=== PATIENT | female | born 1990 | race Caucasian/White ===

== ENCOUNTER 2020-06-18 10:08 | Outpatient (CLI) | payer OTHER, SELFPAY ==
[2020-06-18 22:11] LABS: SARS-CoV-2 RNA PCR Positive
== END 2020-06-18 10:09 | disposition home or self-care (01) ==
PROVIDERS: PCP Nurse Practitioner Family; Visit Provider Nurse Practitioner Family
DX: U07.1 COVID-19 (principal)
CPT/HCPCS: 87635; C9803; U0003

== ENCOUNTER 2022-05-13 16:14 | Outpatient (NON) | payer OTHER, SELFPAY ==
[2022-05-13 16:28] LABS: Add Urine Microscopic? YES; Bilirubin Urine Negative (Negative); Blood Urine 3+ (Negative); Color Urine Light Yellow (Yellow); Glucose Urine UA Negative (Negative); Ketones Urine Trace (Negative); Leukocyte Esterase Ur 2+ LEU/UL (Negative); Nitrate Urine Negative (Negative); Protein Urine Negative (Negative); Specific Grav Ur >= 1.030 (1.010-1.020); Urobilinogen Urine 0.2 mg/dL (0.2-1.0)
[2022-05-13 16:33] LABS: Appearance Urine Slightly Cloudy (Clear); Squamous Epithelial Cell Urine Few /hpf (Few); WBC Urine 16-20 /hpf (0-3)
[2022-05-13 16:34] LABS: Bacteria Urine 2+ /hpf
== END 2022-05-13 16:15 | disposition home or self-care (01) ==
LOC: CHSLAB 16:15
PROVIDERS: Visit Provider Nurse Practitioner Family
DX: N76.0 Acute vaginitis (principal)
CPT/HCPCS: 81001; 87086; 87088; 87491; 87591; 87661

== ENCOUNTER 2023-07-11 10:06 | Emergency (ER) | payer OTHER, SELFPAY ==
--- NOTE | ~2023-07-11 | XR_ITS ---
EXAMINATION: XR chest 2V DATE: 07/11/2023 10:59 INDICATION: Chest congestion TECHNIQUE: Frontal and lateral views of the chest are obtained COMPARISON: 08/27/2019 FINDINGS: There are airspace opacities of the lung bases. No pleural effusion or pneumothorax. The ca rdiomediastinal silhouette is normal. The visualized bones and soft tissues are unremarkable. Bibasil ar airspace opacities, likely pneumonia. IMPRESSION: 1. No acute cardiopulmonary abnormality. Reviewed, dictated and finalized at location F.
[2023-07-11 10:06] VITALS: BP 163/80; PULSE 100; RESP 17; TEMP 36.3; O2SAT 95
[2023-07-11 10:19] VITALS: O2SAT 95
--- NOTE | 2023-07-11 10:38 | ED.URI ---
HPI - URI/Sore Throat General Chief Complaint: Upper Respiratory Infection Stated Complaint: URI Time Seen by Provider: 07/11/23 10:09 Source: patient Mode of arrival: ambulatory Limitations: no limitations History of Present Illness HPI Narrative: Patient is a 32-year-old female with cough and congestion and short of breath with fever and chills for the past week. Her partner is also being seen in the ER for similar symptoms. MD elicited complaint: fever, cough and nasal congestion Onset (ago): week(s) (1) Consistency: intermittent Severity: moderate Description of mucous: yellow and green Exacerbating factors: nothing Relieving factors: OTC cold medicine Context: sick contacts Associated symptoms: fever, chills, myalgias, nasal congestion, cough and shortness of breath Treatments prior to arrival: cold medicine Related Data Allergies Allergy/AdvReac Type Severity Reaction Status Date / Time hydrocodone Allergy Unknown rash Verified 07/11/23 10:16 Review of Systems Review of Systems: All systems reviewed & are unremarkable except as noted in HPI and below Constitutional: Constitutional: Reports no additional constitutional complaints Eyes: Eyes: Reports no additional eye complaints ENT: Reports system reviewed and no additional complaints, except as documented Cardiovascular: Cardiovascular: Reports no additional cardiovascular complaints Respiratory: Respiratory: Reports no additional respiratory complaints Gastrointestinal: Gastrointestinal: Reports no additional gastrointestinal complaints Genitourinary: Genitourinary: Reports no additional female genitourinary complaints Musculoskeletal: Musculoskeletal: Reports no additional musculoskeletal complaints Integumentary/Breasts: Skin/Breast: Reports system reviewed and no additional complaints, except as docu Neurologic: Reports system reviewed and no additional complaints, except as documented Psychiatric: Psychiatric: Reports no additional psychiatric complaints Endocrine: Endocrine: Reports no additional endocrine complaints Hematologic/Lymphatic: Hematologic/Lymphatic: Reports no additional hematologic/lymphatic complaints Allergic/Immunologic: Allergic/Immunologic: Reports no additional allergic/immunologic complaints PMFSH Past Medical History Medical History Acute bronchitis Depression Generalized anxiety disorder Obesity, Class II, BMI 35-39.9 Surgical History Surgical History Hx of cholecystectomy Family History Family History Grandparent Family history of lung cancer Social History Social History Smoking status: Never smoker Alcohol intake: never Substance use: current Substance use type: marijuana Lack of Transportation: No Lack of Food: Never True Current Housing: I Have Housing Concerned About Future Housing: No Difficulty Paying Gas/Electric Bills: No Difficulty Paying for Meds: No Currently Unemployed: No Education: Bachelor's Degree Difficulty w/ Childcare or Family Care: No Living arrangements: with family Occupation/Education: unemployed Gender identity (if verbalized by the patient): Female Exam Const: General: ill appearing Nutritional Appearance: well nourished Orientation/consciousness: patient oriented x3 Limitations: no limitations HENMT: Head: normal to inspection Ears: external ears normal Face/Nose/Sinus: Normal external nose present Eyes: Conjunctivae: conjunctivae normal Pupils: Equal, round and reactive pupils present EOM: EOMs intact bilaterally Neck: Neck: normal visual inspection Chest: Chest palpation & inspection: normal inspection of the chest Resp: Effort & Inspection: normal respiratory effort, not labored and no retractions Auscultation
[2023-07-11 10:57] LABS: Strep Group A RT-PCR DETECTED (Negative)
[2023-07-11 11:39] LABS: Influenza A QL RT-PCR Negative (Negative); Influenza B QL RT-PCR Negative (Negative); SARS-CoV-2 RNA PCR Negative (Negative)
[2023-07-11 11:42] LABS: RSV RNA, RT-PCR Negative (Negative)
[2023-07-11 11:58] VITALS: BP 163/80; PULSE 100; RESP 17; TEMP 36.3; O2SAT 95
== END 2023-07-11 11:58 | disposition home or self-care (01) ==
PROVIDERS: Emergency Provider Emergency Medicine; PCP Nurse Practitioner Family
DX: J02.0 Streptococcal pharyngitis (principal); Z20.822 Contact with and (suspected) exposure to COVID-19; F12.90 Cannabis use, unspecified, uncomplicated; F41.1 Generalized anxiety disorder; F32.A Depression, unspecified
CPT/HCPCS: 71046; 87637; 87651; 99283

== ENCOUNTER 2024-07-21 09:49 | Outpatient (CLI) | payer OTHER, SELFPAY ==
[2024-07-21 10:01] LABS: Add Urine Microscopic? YES; Appearance Urine Clear (Clear); Bilirubin Urine Negative (Negative); Blood Urine 2+ (Negative); Color Urine Light Yellow (Yellow); Glucose Urine UA Negative (Negative); Ketones Urine Negative (Negative); Leukocyte Esterase Ur 1+ LEU/UL (Negative); Nitrate Urine Negative (Negative); Protein Urine Trace (Negative); Specific Grav Ur 1.025 (1.010-1.020); Urobilinogen Urine 0.2 mg/dL (0.2-1.0)
[2024-07-21 10:48] LABS: Bacteria Urine 1+ /hpf; Squamous Epithelial Cell Urine Few /hpf (Few)
== END 2024-07-21 09:50 | disposition home or self-care (01) ==
PROVIDERS: PCP Nurse Practitioner Family; Visit Provider Nurse Practitioner Family
DX: R39.9 Unspecified symptoms and signs involving the genitourinary system (principal)
CPT/HCPCS: 81001; 87077; 87086; 87088; 87186

== ENCOUNTER 2024-08-05 11:41 | Emergency (ER) | payer OTHER, SELFPAY ==
[2024-08-05 11:41] VITALS: BP 146/91; PULSE 94; RESP 16; TEMP 37; O2SAT 100
[2024-08-05 11:55] LABS: Add Urine Microscopic? YES; Appearance Urine Sl Cloudy (Clear); Bilirubin Urine Negative (Negative); Blood Urine 3+ (Negative); Color Urine Light Yellow (Yellow); Glucose Urine UA Negative (Negative); Ketones Urine Negative (Negative); Leukocyte Esterase Ur 2+ LEU/UL (Negative); Nitrate Urine Positive (Negative); Protein Urine 1+ (Negative); Specific Grav Ur 1.015 (1.010-1.020)
[2024-08-05 12:01] LABS: Bacteria Urine 2+ /hpf; Squamous Epithelial Cell Urine Few /hpf (Few); WBC Urine 31-50 /hpf (0-3)
--- NOTE | 2024-08-05 12:04 | ED.FEMALEGU ---
HPI - Female Genitourinary General Chief complaint: Urogenital-Female Stated complaint: UTI symptoms Time Seen by Provider: 08/05/24 11:43 Source: patient and family Mode of arrival: ambulatory Limitations: no limitations History of Present Illness HPI Narrative: this is a 33-year-old female with frequent UTIs presents with a suprapubic pain and dysuria no flank pain no fever chills and recently finished a course of antibiotics approximately 2 weeks ago no nausea vomiting no shortness of breath no chest pain. MD elicited complaint: dysuria and difficulty urinating Pertinent past history: recurrent UTIs Onset (ago): day(s) Location of symptoms: suprapubic Severity: mild Related Data Allergies Allergy/AdvReac Type Severity Reaction Status Date / Time hydrocodone Allergy Unknown rash Verified 08/05/24 11:43 Review of Systems Review of Systems: All systems reviewed & are unremarkable except as noted in HPI and below PMFSH Past Medical History Medical History Acute bronchitis Depression Generalized anxiety disorder Obesity, Class II, BMI 35-39.9 Surgical History Surgical History Hx of cholecystectomy Family History Family History Grandparent Family history of lung cancer Social History Social History Smoking status: Never smoker Alcohol intake: never Substance use: current Substance use type: marijuana Lack of Transportation: No Lack of Food: Never True Current Housing: I Have Housing Concerned About Future Housing: No Difficulty Paying Gas/Electric Bills: No Difficulty Paying for Meds: No Currently Unemployed: No Education: Bachelor's Degree Difficulty w/ Childcare or Family Care: No Living arrangements: with family Occupation/Education: unemployed Gender identity (if verbalized by the patient): Female Exam Const: General: healthy appearing and no acute distress Nutritional Appearance: well nourished Orientation/consciousness: patient oriented x3 Limitations: no limitations Resp: Effort & Inspection: normal respiratory effort Auscultation: clear to auscultation bilaterally Cardio: Rate: regular rate Rhythm: regular rhythm GI: GI Palp: Yes Soft to palpation and Yes Tenderness to palpation present (GI) Other: Suprapubic tenderness with palpation : General: Yes no CVA tenderness Urinary Catheter: Urinary Catheter: patent and draining and urine cloudy Back/Spine/Pelvis: Back: no CVA tenderness Skin: General skin exam: normal color Rashes: no rashes Neuro: General: patient oriented x3 Course Course Emergency Course: urinalysis shows 2+ bacteria with positive leukocytes will treat for UTI will send antibiotics to patient's local pharmacy. Vital Signs Vital signs: Vital Signs Temperature 37.0 C 08/05/24 11:41 Pulse Rate 94 08/05/24 11:41 Respiratory Rate 16 08/05/24 11:41 Blood Pressure 146/91 H 08/05/24 11:41 Pulse Oximetry 100 08/05/24 11:41 Oxygen Delivery Room Air 08/05/24 11:41 Temperature 37.0 C 08/05/24 11:41 Pulse Rate 94 08/05/24 11:41 Respiratory Rate 16 08/05/24 11:41 Blood Pressure 146/91 H 08/05/24 11:41 Pulse Oximetry 100 08/05/24 11:41 Oxygen Delivery Room Air 08/05/24 11:41 MDM - Female Genitourinary Lab Data Labs: Lab Results 08/05/24 Range/Units 11:44 Urine Color Light yellow (Yellow) Urine Appearance Sl cloudy A (Clear) Urine pH 6.0 (5.0-8.0) Ur Specific [place] 1.015 (1.010-1.020) Urine Protein 1+ H (Negative) Urine Glucose (UA) Negative (Negative) Urine Ketones Negative (Negative) Ur Blood (Man) 3+ H (Negative) Urine Nitrate Positive H (Negative) Urine Bilirubin Negative (Negative) Urine Urobilinogen 2.0 H (0.2-1.0) mg/dL Leukocyte Esterase Rfl 2+ H (Negative) DUANE/UL Urine RBC 11-20 H (0-2) /hpf Urine WBC 31-50 H (0-3) /hpf Ur Squamous Epith Cells Few (Few) /hpf Urine Bacteria 2+ H (None) /hpf Critical Care Time Critical Care Time Critical Care Time: No Discharge Plan Discharge Clinical Impression: UTI (urinary tract infection) Patient Disposition: Home, Self-Care Condition: Stable Instructions: Antibiotic Form, Urinary Tract Infection in Women (ED) Additional Instructions: advised patient to take medication as prescribed and follow with primary within 1 week further evaluation and treatment. Prescriptions: New ciprofloxacin HCl 500 mg tablet 500 mg PO Q12H Qty: 14 0RF No Action bupropion HCl 150 mg tablet extended release 24 hr 150 mg PO DAILY Qty: 90 3RF fluoxetine 40 mg capsule See Rx Instructions .ROUTE .COMPLEX Qty: 14 0RF Dose Instruction: TAKE 1 CAPSULE BY MOUTH EVERY DAY Rx Instructions: TAKE 1 CAPSULE BY MOUTH EVERY DAY norethindrone-e.estradiol-iron [Aurovela Fe 1-20 (28)] 1 mg-20 mcg (21)/75 mg (7) tablet See Rx Instructions .ROUTE .COMPLEX Qty: 28 0RF Dose Instruction: TAKE 1 TABLET BY MOUTH EVERY DAY Rx Instructions: TAKE 1 TABLET BY MOUTH EVERY DAY Follow-up/Referrals: Jessica Martin NP [Primary Care Provider] - Time of Disposition: 12:08
[2024-08-05 12:25] VITALS: BP 146/91; PULSE 94; RESP 16; TEMP 37; O2SAT 100
--- NOTE | 2024-08-08 13:31 | PC.NURSE ---
final urine culture results: isolate 1: greater than 100,000 cfu/ml of escherichia coli. per c&s and Dr. Badillo, no change in treatment needed.
== END 2024-08-05 12:25 | disposition home or self-care (01) ==
LOC: CHSED 12:13
PROVIDERS: Emergency Provider Emergency Medicine; PCP Nurse Practitioner Family
DX: N39.0 Urinary tract infection, site not specified (principal)
CPT/HCPCS: 81001; 87086; 87186; 99283